=== PATIENT | male | born 1970 | race Caucasian/White ===

== ENCOUNTER 2019-12-17 16:53 | Emergency (ER) | payer MEDICARE, SELFPAY ==
[2019-12-17 16:58] VITALS: BP 164/104; PULSE 92; RESP 16; TEMP 36.7; O2SAT 95; BMI 32.3
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
--- NOTE | 2019-12-17 17:17 | XR_ITS ---
WS: [id number] XR hand LT min 3V* [id number] REASON FOR EXAM: trauma; pain FINDINGS: The phalanges, metacarpal carpals, and carpals were all intact. L and radius were normal. N o fractures or displacement of the hand were seen. XR/XR hand LT min 3V* [id number] IMPRESSION: Negative left hand.
[2019-12-17] MEDS: tetanus-diphtheria tox (adult) 0.5 mL SDV IM (17:23)
[2019-12-17 18:12] VITALS: RESP 18
[2019-12-17] MEDS: morphine 4 mg/mL SDV 1 mL IM (18:12)
[2019-12-17 18:39] VITALS: BP 138/76; PULSE 76; RESP 16; O2SAT 96
--- NOTE | 2019-12-18 13:48 | DCPLANNER ---
rehab department manager had message to schedule a follow up appointment for patient with ortho. rehab department manager called the ortho clinic. rehab department manager spoke with Pat, gave clinic patient information. rehab department manager was told that patients information would be printed and reviewed. Deepthi from ortho called rifle case repairer back, and stated that after patients information was reviewed that patient can follow up with primary care. Pat stated that she has spoke with patient and informed patient of this.
== END 2019-12-17 18:41 | disposition home or self-care (01) ==
LOC: ER 18:28
PROVIDERS: Emergency Provider Physician Assistant; Family Provider Nurse Practitioner; PCP Nurse Practitioner
DX: S61.213A Laceration without foreign body of left middle finger without damage to nail, initial encounter (principal); S61.215A Laceration without foreign body of left ring finger without damage to nail, initial encounter; S61.217A Laceration without foreign body of left little finger without damage to nail, initial encounter; F17.200 Nicotine dependence, unspecified, uncomplicated; W29.8XXA Contact with other powered hand tools and household machinery, initial encounter
CPT/HCPCS: 12001; 12345; 73130; 90471; 90714; 96372; 99281; 99283; J2001; J2270

== ENCOUNTER 2019-12-18 08:47 | Emergency (ER) | payer MEDICARE, SELFPAY ==
[2019-12-18 09:13] VITALS: BP 158/101; PULSE 69; RESP 18; TEMP 36.9; O2SAT 96; BMI 32.3
== END 2019-12-18 10:23 | disposition left against medical advice (07) ==
PROVIDERS: Emergency Provider Emergency Medicine; Family Provider Nurse Practitioner; PCP Nurse Practitioner
DX: Z53.21 Procedure and treatment not carried out due to patient leaving prior to being seen by health care provider (principal); F17.200 Nicotine dependence, unspecified, uncomplicated
CPT/HCPCS: 99281

== ENCOUNTER 2021-05-18 09:22 | Emergency (ER) | payer MEDICARE, SELFPAY ==
[2021-05-18 10:10] VITALS: BP 148/92; PULSE 69; RESP 19; TEMP 36.8; O2SAT 97; BMI 33.0
--- NOTE | 2021-05-18 10:23 | ED_ITS ---
HPI - Eye Problem General: Chief complaint: Eye Problems Stated complaint: Drainage in eye, rash on R hand Finger, L eye pain Time Seen by Provider: 05/18/21 10:22 History of Present Illness: HPI Narrative: Patient is a 50-year-old male who comes to the ED with left eye complaint. Patient says for the past week he has had some occasional draining from his left eye along with itching. Patient says he was working under his vehicle a week ago right before onset of symptoms any thought something got in his left eye. He then rinsed it out and says he has no feeling of any foreign body in his eye and does not have any eye pain. After that he started getting a little bit of drainage out of his left eye and has left eye was also itching quite a bit. Denies any vision changes Associated symptoms: Denies fever(s), headache(s), nausea, neck pain or vomiting Review of Systems Const: Denies: fever(s), chills or fatigue Eyes: Reports: eye discharge, eye redness and other (pruritic left eye); Denies: change in vision or eye discomfort ENMT: Denies: throat pain, odynophagia, nasal discharge or nasal congestion Card: Denies: chest pain, palpitations, edema, swelling of feet/ankles, dyspnea on exertion or orthopnea Resp: Denies: dyspnea, productive cough or non-productive cough GI: Denies: abdominal pain, nausea, vomiting, diarrhea, constipation or hematochezia : Denies: flank pain, difficulty urinating, dysuria or hematuria Musc: Denies: neck pain, back pain or extremity swelling Skin/Breast: Denies: rash or new lesions Neuro: Denies: headache(s), numbness in extremities or weakness in extremities PFS ED PFSH: Social History Smoking and tobacco status: current every day smoker Physical Exam Const: COMMON NORMALS: no acute distress, patient oriented x3, healthy appearing and alert GENERAL APPEARANCE: cooperative and comfortable HENMT: COMMON NORMALS: normocephalic HEAD & SCALP: normocephalic MOUTH: Normal oral and palatal mucosa present THROAT: posterior oropharynx normal and uvula midline Eye: COMMON NORMALS: Equal, round and reactive pupils present and EOMs intact bilaterally CONJUNCTIVA: Yes conjunctival abnormal positive left conjunctival injection localized (lateral aspect) PUPIL: Yes Equal, round and reactive pupils present SLIT LAMP EXAM: Yes slit lamp exam performed with fluorescein OTHER: Lamp exam performed with fluorescein dye in the left eye. Some superficial abrasions noted on lateral aspect of left eye. Neck/C-Spine: COMMON NORMALS: supple GENERAL: Yes normal visual inspection Resp: COMMON NORMALS: normal respiratory effort, No retractions, No use of accessory muscles and clear to auscultation bilaterally AUSCULTATION: clear to auscultation bilaterally Cardio: COMMON NORMALS: regular rate, regular rhythm, S1 normal heart sound present, S2 normal heart sound present, No gallops present (Cardio), No clicks present (Cardio), No murmurs present (Cardio) and Peripheral pulses 2+ throughout RATE: regular rate RHYTHM: regular rhythm HEART SOUNDS: S1 normal heart sound present and S2 normal heart sound present PERIPHERAL PULSES: Peripheral pulses 2+ throughout GI: COMMON NORMALS: Normal to inspection, nondistended, normoactive bowel sounds present, Soft to palpation, non-tender and no masses PALPATION: Yes Soft to palpation : COMMON NORMALS: Yes no CVA tenderness BLADDER/KIDNEY EXAM: Yes no CVA tenderness Back/Pelvis: COMMON NORMALS: no CVA tenderness Extremity: COMMON NORMALS: normal to inspection Neuro: COMMON NORMALS: patient oriented x3 and moves all extremities SENSORIUM/ORIENTATION: Yes alert Skin: GENERAL SKIN EXAM: dry skin Course Vital Signs: Vital signs: Vital Signs Temperature 98.2 F 05/18/21 10:10 Pulse Rate 69 05/18/21 10:10 Respiratory Rate 19 H 05/18/21 10:10 Blood Pressure 148/92 05/18/21 10:10 Pulse Oximetry 97 05/18/21 10:10 MDM - Eye Problem MDM Narrative: Medical decision making narrative: Patient is a 50-year-old male comes to the ED with left eye complaint. Patient says a week ago he thinks he got something in his left eye and was able to rinse it out. He is having some continued discharge of left eye along with itchiness to left eye as well. Denies any vision changes or pain. Fluorescein dye and lamp exam shows some superficial abrasions on left eye lateral aspect. Patient diagnosed with superficial abrasions of left eye and given a dose of Maxitrol eyedrops while here in the ED. He was then discharged home with Maxitrol eyedrops prescriptions and told to follow-up with his PCP in 7 to 10 days. He was also told to follow-up with an eye doctor within the next 48 hours as needed. He can also return to ED if symptoms worsen. Patient was given contact information for Dr. [facility]. Patient understood agree with plan. Discharge Plan Discharge Patient Disposition: Home Clinical Impression: Superficial abrasion of left eye region Condition: Stable Prescriptions: New Maxitrol 3.5mg/mL-10,000 unit/mL-0.1 % drops,suspension 2 drp ophthalmic (eye) Q6H 5 Days Qty: 5 RF: 0 Discharge Orders: Discharge ED (Routine); Ordered 05/18/21 Ordered By: Carlos Diez Discharge Diet: Regular Discharge Activity: Resume usual activity Patient Instructions: Corneal Abrasion (ED) Activity Restrictions/Additional Instructions: Follow-up with medical provider as directed. He can follow-up with your primary care doctor in a week to 10 days for reevaluation. If you are not getting any improvement after [address] [facility] clinic-phone number is [phone]- Address is [id number] [place] or come directly to ED for reevaluation. take medications as prescribed. Return to the ER or your medical provider if condition worsens. Please read and understand discharge instructions. Thank you for choosing [facility] for your healthcare needs today. Please realize this is an emergency room and that we are providing you with a medical screening exam and this may not be complete and all inclusive of all the testing and or work up that you may need to determine your ailment or severity of your illness. It is very important that you follow up as instructed or that you return to the Emergency Department should you have concerns or if your condition changes or worsens in any way. Coding Level of Care Code ED Motorcycle Designer for Ashley Lyle Exam Comprehensive
[2021-05-18] MEDS: fluorescein 1 mg Strip EYE-LEFT (10:40)
[2021-05-18] MEDS: eye irrigation 30 mL Btl EYE-LEFT (10:40)
[2021-05-18] MEDS: neomycin-poly-dex Op 5 mL Btl 2 DROP EYE-LEFT (11:36)
== END 2021-05-18 11:44 | disposition home or self-care (01) ==
PROVIDERS: Emergency Provider Physician Assistant
DX: S05.8X2A Other injuries of left eye and orbit, initial encounter (principal); F17.210 Nicotine dependence, cigarettes, uncomplicated; X58.XXXA Exposure to other specified factors, initial encounter
CPT/HCPCS: 99283

== ENCOUNTER 2021-08-02 11:04 | Emergency (ER) | payer MEDICARE, SELFPAY ==
--- NOTE | 2021-08-02 11:07 | XRR_ITS ---
PROCEDURE INFORMATION: Exam: XR Right Hand Exam date and time: 08/02/2021 11:07 AM Age: 51 years old Clinical indication: Injury or trauma; Wound; Injury details: Burn on right hand, mainly centered over the webbing between first and second digit. ; Additional info: Burn injury, eval for retained foreign obj TECHNIQUE: Imaging protocol: XR Right hand. Views: Frontal, lateral, and oblique, 3 views. COMPARISON: CR Elbow 3 views, RIGHT* [id number] 11/12/2015 10:23 AM FINDINGS: Bones/joints: No acute bony abnormality identified. Small bone island proximal 2nd middle phalanx. Soft tissues: No ectopic soft tissue gas. No foreign body. XR/XR hand RT min 3V* [id number] IMPRESSION: No acute bony injury identified. No foreign body. Radiation Dose CTDIVOL = (mGy): DLP = (mGy-cm)
[2021-08-02 11:23] VITALS: BP 125/91; PULSE 72; RESP 16; TEMP 36.8; O2SAT 98; BMI 31.5
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
[2021-08-02] MEDS: tetanus-dipt-pertussis 0.5 mL SDV IM (13:42)
[2021-08-02] MEDS: acetaminophen 500 mg Tablet 1000 MG PO (13:44)
[2021-08-02 13:46] VITALS: RESP 20
[2021-08-02] MEDS: morphine 4 mg/mL SDV 1 mL IM (13:46)
[2021-08-02] MEDS: ketorolac 30 mg/mL INJ IM (13:50)
[2021-08-02] MEDS: mupirocin oint 22 gm 1 APPLIC TOPICAL (13:51)
--- NOTE | 2021-08-02 14:02 | PC.NURSE ---
dressed right hand with 2 telfa dressing and a kerlix dressing.
--- NOTE | 2021-08-02 14:38 | DCPLANNER ---
transitional care manager had message to schedule a follow up appointment for patient with a primary care physician. transitional care manager called [facility], spoke with Brenda, gave clinic patients information. A follow up appointment was scheduled for Sunday, July at 10:[address] Yao. transitional care manager called patient with appointment information.
--- NOTE | 2021-08-25 14:52 | DCPLANNER ---
Patient had a follow up appointment scheduled for 08.03.[address] Yao for pcp - patient did attend appointment.
== END 2021-08-02 14:00 | disposition home or self-care (01) ==
PROVIDERS: Emergency Provider Emergency Medicine
DX: T23.261A Burn of second degree of back of right hand, initial encounter (principal); X08.8XXA Exposure to other specified smoke, fire and flames, initial encounter; Z23 Encounter for immunization
CPT/HCPCS: 73130; 90471; 90715; 96372; 99283; J1885; J2270

== ENCOUNTER → 2021-08-03 11:42 | Outpatient (BNVA) | payer MEDICARE, SELFPAY | PROVIDERS: Visit Provider Family Medicine | DX: T30.0 Burn of unspecified body region, unspecified degree (principal); Z76.89 Persons encountering health services in other specified circumstances | CPT/HCPCS: 80053; 85025 ==

== ENCOUNTER 2023-03-20 07:21 | Emergency (ER) | payer MEDICARE, SELFPAY ==
[2023-03-20 07:36] VITALS: BP 144/90; PULSE 68; TEMP 36.8; O2SAT 97; BMI 31.2
--- NOTE | 2023-03-20 07:42 | ED_ITS ---
HPI - Headache General: Stated Complaint: tooth pain/face swelling Time Seen by Provider: 03/20/23 07:22 PFSH ED PFSH: Social History (Updated 08/03/21 @ 10:47 by Oliver Philippe LPN) Smoking and tobacco status: current every day smoker e-cigarettes E-Cigarette Details: vaporizer device Alcohol intake: current Alcohol intake frequency: holidays/special occasions only Substance/Drug Use: never Discharge Plan Discharge Condition: Stable Coding Level of Care Code ED Vp Strategic Planning for Ashley Lyle
--- NOTE | 2023-03-20 07:44 | ED_ITS ---
HPI - Dental/Oral General: Chief complaint: Dental/Oral Stated complaint: tooth pain/face swelling Time Seen by Provider: 03/20/23 07:22 Source: patient Mode of arrival: ambulatory Limitations: no limitations History of Present Illness: Patient is a 52-year-old male who presents to ED today with a complaint of dental pain and possible abscess. Patient states he had pain in the tooth for quite some time and sometimes it will flare up before resolving on its own. He states this morning he began noticing some swelling surrounding the tooth and feels like his face might be swollen. He denies fevers. No headache. He is eating, drinking, controlling secretions, speaking normally. No neck pain or swelling. Patient states he is actively calling around to dentist trying to get an appointment. MD Complaint: tooth pain Onset (ago): day(s) Duration: constant Severity: moderate Relieving factors: nothing Exacerbating factors: chewing Context: history of dental caries and poor dental care Associated symptoms: Denies ear or mastoid pain, fever(s) or odynophagia Treatment prior to arrival: none Review of Systems Const: Denies: fever(s), chills, body aches, fatigue or malaise Eyes: Denies: change in vision, blurry vision, photophobia, eye discomfort, floaters or seeing flashes ENMT: Reports: dental pain; Denies: throat pain, uvular edema, enlarged tonsils, odynophagia, swelling of lips/tongue, oral sores, ear or mastoid pain, nasal discharge, nasal congestion or sinus pain Card: Denies: chest pain Resp: Denies: dyspnea GI: Denies: nausea or vomiting Musc: Denies: neck pain Neuro: Denies: headache(s) or dizziness PFS ED PFSH: Social History Smoking and tobacco status: current every day smoker e-cigarettes E-Cigarette Details: vaporizer device Alcohol intake: current Alcohol intake frequency: holidays/special occasions only Substance/Drug Use: never Physical Exam Const: COMMON NORMALS: no acute distress, average body habitus, patient oriented x3, no limitations, alert and well nourished GENERAL APPEARANCE: cooperative ORIENTATION/CONSCIOUSNESS: Yes awake, Yes oriented to person, Yes oriented to place and Yes oriented to time HENMT: COMMON NORMALS: normocephalic, atraumatic and Normal external nose present HEAD & SCALP: normal to inspection, normocephalic and atraumatic FACE & SINUS: normal facial exam and sinuses nontender NOSE: Normal external nose present MOUTH: Normal oral and palatal mucosa present, lip normal and tongue normal TEETH & GINGIVA: Yes caries, Yes poor dentition and Yes other (floor of mouth is soft/non-elevated) TEETH & GINGIVA IMAGES: 1. cracked/broken decayed tooth with developing lingular gingival surface abscess THROAT: posterior oropharynx normal, tonsils normal and uvula midline; no uvular edema Eye: GENERAL EYE: appearance normal, both eyes and all related structures Neck/C-Spine: COMMON NORMALS: no lymphadenopathy GENERAL: No anterior neck swelling and No submandibular swelling Resp: COMMON NORMALS: normal respiratory effort Cardio: COMMON NORMALS: regular rate and regular rhythm RATE: regular rate RHYTHM: regular rhythm Neuro: COMMON NORMALS: patient oriented x3 and CN's II-XII intact bilaterally SENSORIUM/ORIENTATION: Yes alert, Yes oriented to person, Yes oriented to place and Yes oriented to time Course Vital Signs: Vital signs: Vital Signs Temperature 98.2 F 03/20/23 07:36 Pulse Rate 68 03/20/23 07:36 Blood Pressure 144/90 03/20/23 07:36 Pulse Oximetry 97 03/20/23 07:36 Oxygen Delivery Me thod Room Air 03/20/23 07:36 MDM - Dental/Oral Medical Decision Making Patient will be placed on antibiotics and recommend prompt dental follow-up. Dental resources provided. Discharge Plan Discharge Patient Disposition: Home Clinical Impression: Pain, dental, Abscess, dental, Dental caries Condition: Stable Prescriptions: New penicillin V potassium 500 mg tablet 500 mg PO Q8H 7 Days Qty: 21 0RF Discharge Orders: Discharge ED (Routine); Ordered 03/20/23 Ordered By: Alberta Dia Patient Instructions: Dental Abscess (ED) Coding Level of Care Code ED Cloth Napping Supervisor for Ashley Lyle
--- NOTE | 2023-03-23 12:03 | DCPLANNER ---
manager photo called patient due to no primary care physician - declines at this time.
== END 2023-03-20 07:50 | disposition home or self-care (01) ==
PROVIDERS: Emergency Provider Physician Assistant
DX: K04.7 Periapical abscess without sinus (principal); K02.9 Dental caries, unspecified; K08.439 Partial loss of teeth due to caries, unspecified class
CPT/HCPCS: 99283

== ENCOUNTER → 2025-04-29 08:15 | Outpatient (BNVA) | payer MEDICARE, SELFPAY | PROVIDERS: PCP Family Medicine; Visit Provider Family Medicine | DX: Z13.6 Encounter for screening for cardiovascular disorders (principal); Z12.5 Encounter for screening for malignant neoplasm of prostate | CPT/HCPCS: 80053; 80061; 85025; G0103 ==